=== PATIENT | female | born 1990 | race African-American/Black ===

== ENCOUNTER 2018-06-15 07:04 | Emergency (ER) | payer SELFPAY ==
[~2018-06-15] VITALS: Ht 160 cm; Wt 63.5 kg
[2018-06-15 07:10] VITALS: BP 122/85
[2018-06-15 08:39] LABS: BASOPHILS # (AUTO) 0.1 K/uL (0.00-0.22); BASOPHILS % (AUTO) 0.5 % (0.0-2.0); EOSINOPHILS # (AUTO) 0.1 K/uL (0-0.4); EOSINOPHILS % (AUTO) 0.9 % (0.0-4.0); HEMATOCRIT 40.7 % (36-48); HEMOGLOBIN 13.4 g/dL (12.0-16.0); LYMPHOCYTES # (AUTO) 2.1 K/uL (2.5-16.5); LYMPHOCYTES % (AUTO) 20.6 % (20.5-51.1); MEAN CORPUSCULAR HEMOGLOBIN 31 pg (27-31); MEAN CORPUSCULAR HGB CONC 33 g/dL (33-37); MEAN CORPUSCULAR VOLUME 93.9 fL (80-94); MONOCYTES # (AUTO) 0.5 K/uL (0.8-1.0); MONOCYTES % (AUTO) 5.1 % (1.7-9.3); NEUTROPHILS # (AUTO) 7.5 K/uL (1.8-7.7); NEUTROPHILS % (AUTO) 72.9 % (42.2-75.2); PLATELET COUNT (AUTO) 307 K/uL (140-450); RED BLOOD CELL COUNT(AUTO) 4.33 MIL/uL (4.20-5.40); RED CELL DISTRIBUTION WIDTH 13.3 % (11.6-13.7); WHITE BLOOD COUNT (AUTO) 10.4 K/uL (4.8-10.8)
[2018-06-15] MEDS: ONDANSETRON 4 MG/2 ML VIAL IVP ONE (08:42)
[2018-06-15] MEDS: NACL 0.9% 1,000 ML IV SCH (08:42)
[2018-06-15] MEDS: KETOROLAC 30 MG/ML VIAL IVP ONE (08:43)
[2018-06-15] MEDS: MORPHINE SULFATE 4 MG/ML SYR IVP ONE (08:44)
[2018-06-15 08:51] LABS: ANION GAP 12.8 (8-16); CARBON DIOXIDE 25.7 mmol/L (21-32); CREATININE 0.7 mg/dL (0.6-1.3); POTASSIUM 3.5 mmol/L (3.5-5.1)
[2018-06-15 08:58] LABS: ALBUMIN 3.9 g/dL (3.4-5.0); TOTAL BILIRUBIN 0.5 mg/dL (0.0-1.0)
[2018-06-15] MEDS: NACL 0.9% 1,000 ML IV ONE ×2 (09:38→11:12)
[2018-06-15 10:08] LABS: APPEARANCE,URINE CLEAR (CLEAR); BILIRUBIN,URINE NEGATIVE (NEGATIVE); BLOOD, URINE 3+ (NEGATIVE); COLOR,URINE YELLOW (YELLOW); LEUKOCYTE ESTERASE ,URINE NEGATIVE (NEGATIVE); NITRITE, URINE NEGATIVE (NEGATIVE); UGLUCOSE NEGATIVE (NEGATIVE)
[2018-06-15 10:14] LABS: BARBITURATE, URINE NEG. ng/ml (NEG <=200); BENZODIAZEPINE, URINE NEG. ng/mL (NEG <=200); CANNABINOID, URINE POS. ng/mL (NEG <=50); COCAINE, URINE NEG. ng/mL (NEG <=300); OPIATE, URINE POS. ng/mL (NEG <=2000); PHENCYCLIDINE SCREEN,URINE NEG. ng/mL (NEG <=25)
[2018-06-15 10:16] LABS: RBC,URINE 50-80 /HPF (0-5)
[2018-06-15 10:17] LABS: WBC,URINE 0-5 (RARE) /HPF (0-5)
[2018-06-15] MEDS: KETOROLAC 15 MG/ML VIAL IVP ONE (11:11)
[2018-06-15] MEDS: METOCLOPRAMIDE 10 MG/2 ML INJ VIAL IVP ONE (11:11)
[2018-06-15] MEDS: GLYCOPYRROLATE 0.2 MG/ML VIAL IV ONE (11:12)
[2018-06-15 12:18] VITALS: BP 119/68
== END 2018-06-15 12:14 | disposition home or self-care (01) ==
LOC: MED 07:04
DX: N13.5 Crossing vessel and stricture of ureter without hydronephrosis (principal); N20.1 Calculus of ureter
CPT/HCPCS: 36415; 74176; 76856; 80053; 80305; 81001; 81025; 82150; 83690; 84702; 85025; 96361; 96374; 96375; 96376; 99284; J1885; J2270; J2405; J2765; J3490; J7030; Q0092